=== PATIENT | male | born 1990 | race Caucasian/White ===

== ENCOUNTER 2017-08-24 15:36 | Emergency (ER) | payer SELFPAY ==
[~2017-08-24] VITALS: Ht 188 cm; Wt 143.0 kg
[~2017-08-24 15:36] MED LIST: BACT2OIN TOP; CLOT1CRE TOP; LORT5TAB PO; NAPR500 PO; NAPR550 PO; ROBA750T PO; Z.0.NO CURRENT MEDS
== END 2017-08-24 17:54 | disposition left against medical advice (07) ==
LOC: NED 15:36
DX: Z03.89 Encounter for observation for other suspected diseases and conditions ruled out (principal)
CPT/HCPCS: 99281